=== PATIENT | male | born 1960 | race Caucasian/White ===

== ENCOUNTER 2016-05-17 13:18 | Emergency (ER) | payer BC ==
[~2016-05-17] VITALS: Ht 180.3 cm; Wt 131.8 kg
[~2016-05-17 13:18] MED LIST: LACTAID1 TAB PO; PRILOSEC 20MG20 MG PO; TOPROL XL 25MG25 MG PO
[2016-05-17 13:20] VITALS: TEMP 98
[2016-05-17] MEDS ORDERED: TOPROL XL 25MG25 MG PO (14:02)
[2016-05-17 14:24] VITALS: BP 127/81; PULSE 100
== END 2016-05-17 14:27 | disposition home or self-care (01) ==
LOC: COL.ER 13:18
DX: I47.1 Supraventricular tachycardia (principal)
CPT/HCPCS: J0153; J7030

== ENCOUNTER 2016-08-15 05:41 | Emergency (ER) | payer BC ==
[~2016-08-15] VITALS: Ht 180.3 cm; Wt 134.1 kg
[2016-08-15 05:43] VITALS: TEMP 98.2
[2016-08-15 06:25] LABS: BASO # 0.1 (0.0-0.2); BASO % 0.9 % (0.0-2.0); EOS # 0.2 (0.0-0.7); EOS % 2.5 % (0-4.0); GRAN # 5.8 (1.4-6.5); GRAN % 63.4 % (42.2-75.2); HEMOGLOBIN 14.3 g/dl (13.5-18.0); LYMPH # 2.3 (1.2-3.4); LYMPH % 25.7 % (20.0-51.0); MEAN CELL VOLUME 92 fl (80.0-100.0); MEAN CORPUSCULAR HEMOGLOBIN 30 pg (27.0-31.0); MEAN CORPUSCULAR HGB CONC 33 g/dl (33.0-37.0); MONO # 0.7 (0.1-0.6); MONO % 7.2 % (1.7-9.3); PLATELET COUNT 202 K/mm3 (130-400); REDCELL DISTRIBUTION WIDTH-CV 12.8 % (11.5-14.5); WHITE BLOOD COUNT 9.1 K/mm3 (4.8-10.8)
[2016-08-15 06:39] LABS: ADJUSTED CALCIUM 8.4 mg/dL (8.4-10.2); ALBUMIN 4.7 gm/dL (3.5-5.0); BILIRUBIN,TOTAL 0.7 mg/dL (0.0-1.0); C-REACTIVE PROTEIN 1.4 mg/dL (0.0-0.9); CREATININE, serum 1.28 mg/dL (0.66-1.25); POTASSIUM 4.3 mmol/L (3.4-5.0); TOTAL PROTEIN 7.9 gm/dL (6.4-8.2)
[2016-08-15] MEDS ORDERED: PERCOCET 325 MG1 TA2 PO (06:57)
[2016-08-15] MEDS ORDERED: ZOFRAN 4MG T4 MG/TAB PO (06:57)
[2016-08-15] MEDS ORDERED: FLOMAX 0.40.4 MG/CAP PO (06:57)
[2016-08-15 07:24] LABS: PH 5 (5-8); SQUAMOUS EPITHELIAL 0-2 /hpf; URINE APPEARANCE Clear; URINE BACTERIA None Seen /hpf; URINE BILIRUBIN Negative (NEGATIVE); URINE BLOOD 2+ (NEGATIVE); URINE COLOR Yellow; URINE GLUCOSE Negative (NEGATIVE); URINE KETONE Negative (NEGATIVE); URINE RBC >50 /hpf; URINE UROBILINOGEN Negative (NEGATIVE)
[2016-08-15 09:34] VITALS: BP 121/61; PULSE 66
== END 2016-08-15 09:53 | disposition home or self-care (01) ==
LOC: COL.ER 05:41
PROVIDERS: Emergency Medicine
DX: N20.2 Calculus of kidney with calculus of ureter (principal); Z87.442 Personal history of urinary calculi; Z85.038 Personal history of other malignant neoplasm of large intestine
CPT/HCPCS: J1170; J1885; J2405; J2550; J7030

== ENCOUNTER → 2016-10-29 | Outpatient (CLI) | payer BC ==
[~2016-10-29] MED LIST changes: +CELEBREX50 MG PO; +EXCEDRIN TENSIO1 TAB PO; +FLOMAX 0.40.4 MG/CAP PO; +FLONASEALLERGY NS; +MOTRIN 200200 MG/TAB PO; +PERCOCET 325 MG1 TA2 PO; +SUDAFED30 MG PO; +ZOFRAN 4MG T4 MG/TAB PO
== END ==
LOC: COL.RAD 13:19
DX: M16.12 Unilateral primary osteoarthritis, left hip (principal)
CPT/HCPCS: J3301; Q9967

== ENCOUNTER 2016-12-24 14:39 | Emergency (ER) | payer BC ==
[~2016-12-24] VITALS: Ht 180.3 cm; Wt 129.5 kg
[~2016-12-24 14:39] MED LIST changes: -CELEBREX50 MG PO; -EXCEDRIN TENSIO1 TAB PO; -FLONASEALLERGY NS; -MOTRIN 200200 MG/TAB PO; -SUDAFED30 MG PO
[2016-12-24 14:42] VITALS: TEMP 95.8
[2016-12-24 15:05] LABS: BASO # 0.1 (0.0-0.2); BASO % 0.7 % (0.0-2.0); EOS # 0.2 (0.0-0.7); EOS % 2.5 % (0-4.0); GRAN # 4.2 (1.4-6.5); GRAN % 52.1 % (42.2-75.2); HEMATOCRIT 41.8 % (42.0-52.0); HEMOGLOBIN 14.5 g/dl (13.5-18.0); LYMPH # 2.9 (1.2-3.4); LYMPH % 36.1 % (20.0-51.0); MEAN CELL VOLUME 91 fl (80.0-100.0); MEAN CORPUSCULAR HEMOGLOBIN 32 pg (27.0-31.0); MEAN CORPUSCULAR HGB CONC 35 g/dl (33.0-37.0); MEAN PLATELET VOLUME 9.8 fl (7.4-10.4); MONO # 0.7 (0.1-0.6); MONO % 8.2 % (1.7-9.3); PLATELET COUNT 186 K/mm3 (130-400); RED BLOOD COUNT 4.59 M/mm3 (4.20-5.60); REDCELL DISTRIBUTION WIDTH-CV 12.6 % (11.5-14.5)
[2016-12-24] MEDS ORDERED: SUDAFED30 MG PO (15:14)
[2016-12-24] MEDS ORDERED: CELEBREX50 MG PO (15:15)
[2016-12-24] MEDS ORDERED: FLONASEALLERGY NS (15:16)
[2016-12-24] MEDS ORDERED: EXCEDRIN TENSIO1 TAB PO (15:17)
[2016-12-24] MEDS ORDERED: MOTRIN 200200 MG/TAB PO (15:18)
[2016-12-24 15:33] LABS: ANION GAP 14 mmol/L (7-16); BLOOD UREA NITROGEN 21 mg/dL (9-20); CARBON DIOXIDE 21 mmol/L (22-30); CHLORIDE 107 mmol/L (98-107); CREATININE, serum 1.06 mg/dL (0.66-1.25); GLUCOSE 133 mg/dL (74-106); POTASSIUM 3.9 mmol/L (3.4-5.0); SODIUM 141 mmol/L (137-145)
[2016-12-24 15:46] LABS: TROPONIN-I < 0.012 ng/mL (0.000-0.034)
[2016-12-24 16:00] VITALS: BP 110/68; PULSE 102
== END 2016-12-24 16:25 | disposition home or self-care (01) ==
LOC: COL.ER 14:39
PROVIDERS: Emergency Medicine
DX: I47.1 Supraventricular tachycardia (principal)

== ENCOUNTER 2017-01-18 09:30 | Outpatient (RCR) | payer BC ==
[~2017-01-18 09:30] MED LIST changes: +CELEBREX50 MG PO; +EXCEDRIN TENSIO1 TAB PO; +FLONASEALLERGY NS; +MOTRIN 200200 MG/TAB PO; +SUDAFED30 MG PO
== END 2017-02-16 ==
LOC: WSPT
DX: M25.562 Pain in left knee (principal); G89.29 Other chronic pain
CPT/HCPCS: G0283-GP

== ENCOUNTER → 2017-04-19 | Outpatient (CLI) | payer BC ==
[~2017-04-19] MED LIST changes: +TOPROL XL100 MG PO; +ULTRAM 50MG TAB50 MG PO
== END ==
LOC: COL.LAB 15:15
DX: Z01.812 Encounter for preprocedural laboratory examination (principal)

== ENCOUNTER → 2017-04-20 | Outpatient (CLI) | payer BC ==
[~2017-04-20] VITALS: Ht 180.3 cm; Wt 133.6 kg
[2017-04-20 06:53] VITALS: BP 127/78; PULSE 72
[2017-04-20 07:52] VITALS: BP 134/73; PULSE 69
[2017-04-20 07:53] VITALS: BP 152/84; PULSE 96
[2017-04-20 07:54] VITALS: BP 150/84; PULSE 93
== END ==
LOC: COL.CARD 06:26
DX: I47.1 Supraventricular tachycardia (principal); I10 Essential (primary) hypertension
CPT/HCPCS: A9502; J2785

== ENCOUNTER 2017-05-05 06:59 | Outpatient (RCR) | payer BC | END 2017-05-05 08:39 | disposition other institution (70) | LOC: WSC 06:59 | DX: Z01.818 Encounter for other preprocedural examination (principal) ==

== ENCOUNTER 2017-05-05 07:06 | Outpatient (RCR) | payer BC | END 2017-05-07 13:29 | disposition home or self-care (01) | LOC: WSC 07:06 | DX: M16.12 Unilateral primary osteoarthritis, left hip (principal) ==

== ENCOUNTER 2017-06-14 12:30 | Outpatient (RCR) | payer BC | END 2017-08-12 | disposition home or self-care (01) | LOC: WSPT | DX: Z47.1 Aftercare following joint replacement surgery (principal); Z96.642 Presence of left artificial hip joint ==

== ENCOUNTER 2020-01-01 13:15 | Emergency (ER) | payer BC ==
[~2020-01-01] VITALS: Ht 180.3 cm; Wt 131.8 kg
[2020-01-01 13:23] VITALS: TEMP 99
[2020-01-01 13:55] LABS: BASO # 0.1 (0.0-0.2); BASO % 0.6 % (0.0-2.0); EOS # 0.2 (0.0-0.7); EOS % 1.5 % (0-4.0); GRAN # 6.4 (1.4-6.5); GRAN % 59.2 % (42.2-75.2); HEMATOCRIT 45.1 % (42.0-52.0); HEMOGLOBIN 14.9 g/dl (13.5-18.0); LYMPH # 3.4 (1.2-3.4); LYMPH % 31.3 % (20.0-51.0); MEAN CELL VOLUME 88 fl (80.0-100.0); MEAN CORPUSCULAR HEMOGLOBIN 29 pg (27.0-31.0); MEAN CORPUSCULAR HGB CONC 33 g/dl (33.0-37.0); MEAN PLATELET VOLUME 11.8 fl (7.4-10.4); MONO # 0.8 (0.1-0.6); MONO % 7.1 % (1.7-9.3); PLATELET COUNT 118 K/mm3 (130-400); RED BLOOD COUNT 5.13 M/mm3 (4.20-5.60); REDCELL DISTRIBUTION WIDTH-CV 13.3 % (11.5-14.5)
[2020-01-01 14:01] LABS: ALBUMIN 4.9 gm/dL (3.5-5.0); BILIRUBIN,TOTAL 0.6 mg/dL (0.0-1.0); CREATININE, serum 1.17 (0.66-1.25); MAGNESIUM 1.8 mg/dL (1.6-2.3); POTASSIUM 3.8 mmol/L (3.4-5.0); TOTAL PROTEIN 8.9 gm/dL (6.4-8.2)
[2020-01-01 16:37] VITALS: BP 126/86; PULSE 87
== END 2020-01-01 16:37 | disposition home or self-care (01) ==
LOC: COL.ER 13:15
PROVIDERS: Emergency Medicine
DX: I47.1 Supraventricular tachycardia (principal); Z95.5 Presence of coronary angioplasty implant and graft; Z79.1 Long term (current) use of non-steroidal anti-inflammatories (NSAID)
CPT/HCPCS: J7030

== ENCOUNTER 2021-12-16 13:32 | Emergency (ER) | payer BC ==
[~2021-12-16] VITALS: Ht 180.3 cm; Wt 134.1 kg
[2021-12-16 13:47] VITALS: TEMP 97.6
[2021-12-16] MEDS ORDERED: GLUCOPHAGE500 MG/TAB PO (13:57)
[2021-12-16] MEDS ORDERED: MOBIC15 MG PO (13:58)
[2021-12-16] MEDS ORDERED: ASPIRIN 81M81 MG/TA2 PO (13:58)
[2021-12-16] MEDS ORDERED: IMODIUM A-D2 MG PO (13:59)
[2021-12-16] MEDS ORDERED: PLAVIX 75MG TAB75 MG PO (13:59)
[2021-12-16] MEDS ORDERED: TAZTIA120 PO (14:00)
[2021-12-16] MEDS ORDERED: CRESTOR40 MG PO (14:01)
[2021-12-16] MEDS ORDERED: NITROSTAT0.4 MG/TAB SL (14:01)
[2021-12-16 14:17] LABS: BASO % 0.7 % (0.0-2.0); EOS # 0.2 K/mm3 (0.0-0.7); EOS % 3.6 % (0.0-4.0); GRAN # 3.3 K/mm3 (1.4-6.5); GRAN % 57.2 % (42.2-75.2); HEMOGLOBIN 11.3 g/dl (13.5-18.0); LYMPH # 1.6 K/mm3 (1.2-3.4); MEAN CELL VOLUME 81 fl (80.0-100.0); MEAN CORPUSCULAR HEMOGLOBIN 25 pg (27-31); MEAN CORPUSCULAR HGB CONC 31 g/dl (33.0-37.0); MEAN PLATELET VOLUME 9.1 fl (7.4-10.4); MONO # 0.7 K/mm3 (0.1-0.6); MONO % 11.3 % (1.7-9.3); PLATELET COUNT 230 K/mm3 (130-400); RED BLOOD COUNT 4.53 M/mm3 (4.20-5.60); REDCELL DISTRIBUTION WIDTH-CV 15.9 % (11.5-14.5)
[2021-12-16 14:24] LABS: HEMATOCRIT 36.6 % (42.0-52.0)
[2021-12-16 14:31] LABS: ALANINE AMINOTRANSFERASE 15 U/L (0-55); ALBUMIN 3.9 gm/dL (3.4-4.8); ALKALINE PHOSPHATASE 50 U/L (40-150); ANION GAP 12 mmol/L (7-16); AST,SGOT 14 U/L (5-34); BILIRUBIN,TOTAL 0.4 mg/dL (0.2-1.2); BLOOD UREA NITROGEN 17 mg/dL (8-26); CALCIUM 8.9 mg/dL (8.4-10.2); CARBON DIOXIDE 21 mmol/L (23-31); CHLORIDE 107 mmol/L (98-107); CREATININE, serum 1.33 mg/dL (0.72-1.25); GLUCOSE 150 mg/dL (70-99); SODIUM 140 mmol/L (136-145); TOTAL PROTEIN 7.6 gm/dL (6.2-8.1)
[2021-12-16 14:38] LABS: TROPONIN-I < 0.010 ng/mL (0.00-0.033)
[2021-12-16] MEDS ORDERED: IMDUR 30MG30 MG/TAB PO (16:01)
[2021-12-16 16:10] VITALS: BP 170/118; PULSE 82
== END 2021-12-16 16:17 | disposition home or self-care (01) ==
LOC: COL.ER 13:32
PROVIDERS: Nurse Practitioner Primary Care
DX: I51.7 Cardiomegaly (principal); Z28.310 Unvaccinated for COVID-19

== ENCOUNTER → 2023-01-12 | Outpatient (CLI) | payer BC ==
[~2023-01-12] MED LIST changes: +ASPIRIN 81M81 MG/TA2 PO; +CRESTOR20 MG PO; +DRISTAN15 ML NS; +GLUCOPHAGE500 MG/TAB PO; +IMDUR 30MG30 MG/TAB PO; +IMODIUM A-D2 MG PO; +LOPRESSOR 225 MG/TAB PO; +MOBIC15 MG PO; +NITROSTAT0.4 MG/TAB SL; +PLAVIX 75MG TAB75 MG PO; +TAZTIA120 PO
== END ==
LOC: COL.RAD 13:57
DX: M50.321 Other cervical disc degeneration at C4-C5 level (principal); M50.322 Other cervical disc degeneration at C5-C6 level; M50.323 Other cervical disc degeneration at C6-C7 level; M48.02 Spinal stenosis, cervical region